=== PATIENT | male | born 1970 | race African-American/Black ===

== ENCOUNTER 2023-04-02 11:40 | Day surgery (SDC) | payer OTHER ==
[2023-03-29 12:14] VITALS: BMI 30.2
[~2023-04-02 11:40] MED LIST: LACTATED RINGERS 1,000 ML IV SCH; LIDOCAINE 1% (10MG/ML) FOR IV START INTRADERMA PRN; ONDANSETRON 4 MG/2 ML VIAL IVP PRN
[2023-04-02] MEDS ORDERED: LACTATED RINGERS 1,000 ML IV ONE (12:22)
[2023-04-02 12:25] VITALS: RESP 18; TEMP 97.5
[2023-04-02] MEDS ORDERED: LIDOCAINE 2% INJ 20 MG/ML (2 ML VIAL) ONE (12:30)
[2023-04-02] MEDS ORDERED: PROPOFOL 10 MG/ML 20 ML VIAL IV ONE (12:30)
--- NOTE | 2023-04-02 12:43 | P.PCN ---
Date of Procedure: 04/02/23 Procedure(s) Performed: BRIEF HISTORY: Patient is a 52-year-old [place] male scheduled for an elective colonoscopy as a part of screening forr colon cancer. PROCEDURE PERFORMED: Colonoscopy with snare polypectomy . PREOPERATIVE DIAGNOSIS: Screening for colon cancer. IV sedation per Anesthesia. PROCEDURE: After informed consent was obtained, the patient, was brought into the endoscopy unit. IV sedation was administered by Anesthesia under continuous monitoring. Digital rectal examination was normal. Initially the Olympus CF-160 flexible video colonoscope was then inserted in the rectum, gradually advanced into the cecum without any difficulty. Careful examination was performed as the scope was gradually being withdrawn. Ileocecal valve and the appendiceal orifice were visualized and appeared normal. Prep was excellent. Mucosa of the cecum had 3 mm polyp that was removed by snare polypectomy. In the hepatic flexure there was another 3 mm and 7 mm polyp removed by snare polypectomy. Rest of the ascending colon, transverse colon, descending colon, sigmoid colon, and rectum appeared normal. Retroflexion was performed in the rectum and no lesions were seen. The patient tolerated the procedure well. IMPRESSION: 3 mm cecal polyp status post polypectomy 3 mm and 7 mm hepatic flexure polyp status post polypectomy Rest of the colon appeared normal RECOMMENDATIONS: Findings of this examination were discussed with the patient as well as his family. He was advised toto follow with the biopsy results. If the biopsy results adenoma he can have a repeat colonoscopy in 5 years
[2023-04-02 13:08] VITALS: BP 125/65; PULSE 72
== END 2023-04-02 13:20 | disposition home or self-care (01) ==
LOC: ORWHC2ENDO 11:40
PROVIDERS: ATTEND Internal Medicine Gastroenterology
DX: Z12.11 Encounter for screening for malignant neoplasm of colon (principal); D12.0 Benign neoplasm of cecum; D12.3 Benign neoplasm of transverse colon; D86.9 Sarcoidosis, unspecified; F12.10 Cannabis abuse, uncomplicated; Z79.899 Other long term (current) drug therapy
CPT/HCPCS: 88305; 45385; J2704; J2001

== ENCOUNTER 2025-02-02 03:40 | Emergency (ER) | payer OTHER ==
[2025-02-02 03:47] VITALS: BP 153/82; PULSE 93; RESP 16; TEMP 97.4
== END 2025-02-02 04:06 ==
LOC: EC 03:40
DX: Z02.83 Encounter for blood-alcohol and blood-drug test (principal)
CPT/HCPCS: 99499